=== PATIENT | male | born 1980 | race African-American/Black ===

== ENCOUNTER 2017-02-02 18:35 | Emergency (ER) | payer MEDICARE, MEDICAID ==
[~2017-02-02] VITALS: Ht 175.3 cm; Wt 81.6 kg
[2017-02-02 18:45] VITALS: BP 146/74
[2017-02-02] MEDS ORDERED: LIDOCAINE 1% HCL (LOCAL ANESTH.) INJ 20ML MDV IJ ONE (21:00)
[2017-02-02] MEDS ORDERED: TETANUS-DIPTH-ACEL PERTUSSIS 0.5ML SYRG IM ONE (22:00)
== END 2017-02-02 22:35 | disposition home or self-care (01) ==
LOC: ER 18:38
DX: S61.213A Laceration without foreign body of left middle finger without damage to nail, initial encounter (principal); S60.222A Contusion of left hand, initial encounter; W26.8XXA Contact with other sharp object(s), not elsewhere classified, initial encounter; Y93.89 Activity, other specified; Y99.8 Other external cause status; Y92.89 Other specified places as the place of occurrence of the external cause; Z23 Encounter for immunization
CPT/HCPCS: 12002; 73120; 90471; 90715; 99284; J2001